=== PATIENT | female | born 1995 | race Two or more races ===

== ENCOUNTER 2024-05-18 10:25 | Emergency (ER) | payer MEDICAID ==
[~2024-05-18] VITALS: Ht 165.1 cm; Wt 54.5 kg
[2024-05-18 10:34] VITALS: TEMP 98.2
[2024-05-18] MEDS: LORazepam 1 MG TABLET PO ONE (11:27)
[2024-05-18] MEDS ORDERED: GABA-1216 PO (11:53)
[2024-05-18 12:07] VITALS: BP 122/66; PULSE 80; RESP 18; O2SAT 100
== END 2024-05-18 12:12 | disposition home or self-care (01) ==
LOC: EMS 10:25
DX: F41.9 Anxiety disorder, unspecified (principal)
CPT/HCPCS: 99283